=== PATIENT | female | born 1995 | race Caucasian/White ===

== ENCOUNTER 2017-04-10 19:22 | Emergency (ER) | payer OTHER ==
--- NOTE | 2017-04-10 19:26 | EDPHY ---
H & P HPI/ROS: HPI CHIEF COMPLAINT: Alcohol Intoxication HISTORY OF PRESENT ILLNESS: This patient 21-year-old female, she presents to the emergency room by EMS with acute alcohol intoxication. She presents emergency room after she was found at the football game highly intoxicated with alcohol. Was unable to ambulate. Vomiting. EMS make contact with her and brought her to the emergency room. She has no significant medical history she had a normal blood sugar. She admits to large amount of alcohol this evening. Denies drug use. Denies trauma. Past Medical History: No known medical history Past Surgical History: No surgical history Social History: [employer] student, alcohol this evening. Denies illicit drugs. Family History: Noncontributory ROS REVIEW OF SYSTEMS: A comprehensive 10 point review of systems is otherwise negative aside from elements mentioned in the history of present illness. Exam Constitutional Intoxicated, triage nursing summary reviewed, vital signs reviewed, Sleepy, smells of alcohol Eyes normal conjunctivae and sclera, horizontal beating nystagmus consistent acute alcohol intoxication, otherwise pupils equal and react to light HENT normal inspection, atraumatic, moist mucus membranes, no epistaxis, neck supple/ no meningismus, no raccoon eyes. Respiratory clear to auscultation bilaterally, normal breath sounds, no respiratory distress, no wheezing. Cardiovascular rate normal, regular rhythm, no murmur, no edema, distal pulses normal. Gastrointestinal soft, non-tender, no rebound, no guarding, normal bowel sounds, no distension, no pulsatile mass. Genitourinary no CVA tenderness. Musculoskeletal no midline vertebral tenderness, full range of motion, no calf swelling, no tenderness of extremities, no meningismus, good pulses, neurovascularly intact. Skin pink, warm, & dry, no rash, skin atraumatic. Neurologic sleepy, intoxicated with alcohol,, alert and oriented x 3, AAOx3, moves all 4 extremities equally, motor intact, sensory intact, CN II-XII intact , , normal vision, normal speech. Psychiatric normal mood/affect. Heme/Lymph/Immune no lymphadenopathy. Differential Diagnosis: Includes but is not limited to in a particular order acute alcohol intoxication, alcohol abuse, dehydration, electrolyte abnormality , nausea vomiting from acute alcohol intoxication Medical Decision Making: Plan for this patient monitor for worsening of condition. Monitor for sobriety. Serum alcohol level. Re-evaluation: 2017: This patient ambulated well throughout the emergency room steady gait. Clinically sober. Has a safe ride home. Safe for discharge. Source: Patient, EMS Constitutional: Initial Vital Signs Temperature (C) 37.0 C 04/10/17 19:25 Heart Rate 70 04/10/17 19:25 Respiratory Rate 15 04/10/17 19:25 Blood Pressure 130/89 H 04/10/17 19:25 O2 Sat (%) 96 04/10/17 19:25 O2 Delivery Mode Room Air O2 (L/minute) 2 Allergies/Adverse Reactions: amoxicillin Allergy (Verified 04/10/17 19:30) penicillin G Allergy (Verified 04/10/17 19:30) Home Medications: Medication Instructions Recorded Control Pills 04/10/17 Departure - Departure Disposition: Home, Routine, Self-Care Clinical Impression: Alcoholic intoxication Qualifiers: Complication of substance-induced condition: uncomplicated Qualified Code(s): F10.920 - Alcohol use, unspecified with intoxication, uncomplicated Condition: Good Instructions: Alcohol Intoxication (ED), Abuse of Alcohol (ED) Referrals: Patient,NotPresent [Primary Care Provider] - As per Instructions
[2017-04-10 19:30] VITALS: TEMP 98.6
[2017-04-10 20:24] VITALS: BP 118/78; PULSE 100; RESP 16; O2SAT 98
== END 2017-04-10 20:19 | disposition home or self-care (01) ==
DX: F10.920 Alcohol use, unspecified with intoxication, uncomplicated (principal)